=== PATIENT | female | born 1990 | race Caucasian/White ===

== ENCOUNTER → 2020-01-22 13:09 | Observation (INO) | END | disposition home or self-care (01) | LOC: 1NENULAB | PROVIDERS: ADMIT Registered Nurse; ATTEND Registered Nurse ==

== ENCOUNTER 2020-04-23 05:31 | Inpatient (IN) ==
[~2020-04-23 05:31] MED LIST: Azithromycin 500 MG in 0.9 % Sodium Chloride 250 ML IVPB ONE; Famotidine 20 MG/2 ML VIAL IVP PRN; Metoclopramide 10 MG/2 ML VIAL IVP PRN; Naloxone 0.4 MG/ML INJ IVP PRN
[2020-04-23] MEDS ORDERED: Ringers Solution, Lactated 1,000 ML IVC ONE (05:32)
[2020-04-23] MEDS ORDERED: ceFAZolin 2,000 MG in 0.9 % Sodium Chloride 100 ML IVPB ONE (05:33)
[2020-04-23] MEDS ORDERED: Ringers Solution, Lactated 1,000 ML ONE ×2 (05:38→10:09)
[2020-04-23] MEDS ORDERED: Ringers Solution, Lactated 1,000 ML IVC SCH (05:45)
[2020-04-23 05:52] LABS: Basophils % 0.2 %; Eosinophils # 0.1 K/mcL (0.0-0.6); Hematocrit 34.1 % (35.3-44.9); Hemoglobin 11.8 g/dL (11.5-15.4); Immature Granulocytes % 1.7 % (0-4); Lymphocytes # 2.1 K/mcL (0.6-4.6); Lymphocytes % 22.5 %; Mean Corpuscular HGB Conc 34.6 g/dL (31.6-35.5); Mean Corpuscular Hemoglobin 32.4 pg (28.0-33.3); Mean Corpuscular Volume 93.7 fL (83.0-100.0); Monocytes # 0.7 K/mcL (0.0-1.3); Monocytes % 6.9 %; Neutrophils # 6.4 K/mcL (1.6-8.9); Platelet Count 238 K/mcL (140-400); Red Blood Count 3.64 M/mcL (3.82-4.97); Red Cell Distribution Width 13.1 % (11.5-14.5); Segmented Neutrophils % 67.7 %; White Blood Count 9.5 K/mcL (4.3-11.1)
[2020-04-23] MEDS ORDERED: *HR* Oxytocin 10 UNIT/ML VIAL IM ONE (09:45)
[2020-04-23] MEDS ORDERED: *HR* FentaNYL (PF) 100 MCG/2 ML VIAL ONE (09:45)
[2020-04-23] MEDS ORDERED: *HR* Morphine Sulfate/PF 10 MG/10 ML AMPUL ONE (09:45)
[2020-04-23] MEDS ORDERED: *HR* Phenylephrine 10 MG/ML VIAL ONE (10:09)
[2020-04-23] MEDS ORDERED: Ketorolac 30 MG/ML VIAL ONE (10:11)
[2020-04-23] MEDS ORDERED: Acetaminophen IV 1,000 MG/100 ML INFUS..BTL ONE (10:11)
[2020-04-23] MEDS ORDERED: *HR* HYDROmorphone (PF) 1 MG/ML SYRINGE IVP PRN (10:14)
[2020-04-23] MEDS ORDERED: Ondansetron 4 MG/2 ML VIAL IVP ONE (10:14)
[2020-04-23] MEDS ORDERED: *HR* Nalbuphine 10 MG/ML AMPUL IV PRN (10:17)
[2020-04-23 10:46] LABS: Amphetamine Screen,Urine Negative ng/mL (Cutoff=1000); Barbiturate Screen,Urine Negative ng/mL (Cutoff=200); Benzodiazepines Screen,Urine Negative ng/mL (Cutoff=200); Cannabinoid Screen,Urine Negative ng/mL (Cutoff = 50); Cocaine Screen,Urine Negative ng/mL (Cutoff= 300); Opiate Screen,Urine Negative ng/mL (Cutoff=300); Phencyclidine Screen,Urine Negative ng/mL (Cutoff=25)
[2020-04-23] MEDS ORDERED: Oxytocin 20 units/ LR 1000 mL 20 UNIT/1,000 ML BAG IVC ONE (11:50)
[2020-04-23] MEDS ORDERED: Simethicone 80 MG TAB.CHEW PO PRN (13:35)
[2020-04-23] MEDS ORDERED: Ondansetron 4 MG/2 ML VIAL IVP PRN (13:35)
[2020-04-23] MEDS ORDERED: Metoclopramide 10 MG/2 ML VIAL IVP PRN (13:35)
[2020-04-23] MEDS ORDERED: Rho Immune Globulin 1,500 UNIT SYRINGE IM ONE (13:35)
[2020-04-23] MEDS ORDERED: *HR* OxyCODONE Immed Rel 5 MG TABLET PO PRN (13:35)
[2020-04-23] MEDS ORDERED: Oxytocin 20 units/ LR 1000 mL 20 UNIT/1,000 ML BAG IVC SCH (13:35)
[2020-04-23] MEDS: cephALEXin 500 MG CAPSULE PO SCH ×2 (15:40→19:50)
[2020-04-23] MEDS: metroNIDAZOLE 500 MG TABLET PO SCH ×2 (15:40→19:51)
[2020-04-23] MEDS: Acetaminophen 325 MG TABLET PO SCH (19:51)
[2020-04-23] MEDS: Ibuprofen 600 MG TABLET PO SCH (19:51)
[2020-04-24] MEDS: Ibuprofen 600 MG TABLET PO SCH ×4 (02:00→22:45)
[2020-04-24] MEDS: Acetaminophen 325 MG TABLET PO SCH ×3 (02:00→20:00)
[2020-04-24 05:44] LABS: Basophils % 0.2 %; Eosinophils # 0.1 K/mcL (0.0-0.6); Eosinophils % 0.7 %; Hematocrit 30.7 % (35.3-44.9); Hemoglobin 10.6 g/dL (11.5-15.4); Lymphocytes # 1.5 K/mcL (0.6-4.6); Lymphocytes % 12.3 %; Mean Corpuscular HGB Conc 34.5 g/dL (31.6-35.5); Mean Corpuscular Hemoglobin 32.5 pg (28.0-33.3); Mean Corpuscular Volume 94.2 fL (83.0-100.0); Monocytes # 0.9 K/mcL (0.0-1.3); Monocytes % 7.5 %; Neutrophils # 9.5 K/mcL (1.6-8.9); Platelet Count 231 K/mcL (140-400); Red Blood Count 3.26 M/mcL (3.82-4.97); Red Cell Distribution Width 12.9 % (11.5-14.5); Segmented Neutrophils % 78.3 %; White Blood Count 12.2 K/mcL (4.3-11.1)
[2020-04-24] MEDS: metroNIDAZOLE 500 MG TABLET PO SCH ×3 (08:09→20:00)
[2020-04-24] MEDS: Prenatal Vit/FA 1 EACH TABLET PO SCH (08:09)
[2020-04-24] MEDS: cephALEXin 500 MG CAPSULE PO SCH ×3 (08:10→20:00)
[2020-04-24] MEDS ORDERED: Lanolin 7 G OINT...G. TP PRN (11:52)
[2020-04-25] MEDS: Acetaminophen 325 MG TABLET PO SCH ×2 (02:25→08:02)
[2020-04-25] MEDS: Ibuprofen 600 MG TABLET PO SCH ×2 (05:16→11:38)
[2020-04-25 07:58] VITALS: BP 107/72
[2020-04-25] MEDS: cephALEXin 500 MG CAPSULE PO SCH (08:02)
[2020-04-25] MEDS: Prenatal Vit/FA 1 EACH TABLET PO SCH (08:02)
[2020-04-25] MEDS: metroNIDAZOLE 500 MG TABLET PO SCH (08:02)
== END 2020-04-25 12:38 | disposition home or self-care (01) | DRG 784 ==
LOC: 1NENULAB → 1NENUOBS 13:34
PROVIDERS: ADMIT Obstetrics & Gynecology; ATTEND Obstetrics & Gynecology